=== PATIENT | female | born 1950 | race Caucasian/White ===

== ENCOUNTER 2017-10-07 11:48 | Inpatient (IN) | payer MEDICARE, OTHER ==
[~2017-10-07] VITALS: Ht 157.5 cm; Wt 108.9 kg
[2017-10-07 11:50] VITALS: BP 204/101
[2017-10-07] MEDS ORDERED: ZANTAC 150MG T150 MG PO (11:56)
[2017-10-07] MEDS ORDERED: JANUVIA100 MG PO (11:56)
[2017-10-07] MEDS ORDERED: NORVASC5 MG PO (11:56)
[2017-10-07] MEDS ORDERED: LEVOCETIRIZINE D5 MG PO (11:57)
[2017-10-07] MEDS ORDERED: PROTONIX40 M1 PO (11:57)
[2017-10-07] MEDS ORDERED: AVAPRO75 MG PO (11:58)
[2017-10-07 12:36] LABS: ABSOLUTE EOSINOPHILS 0.1 thou/uL (0.0-0.7); ABSOLUTE LYMPHOCYTES 1.9 thou/uL (0.8-5.3); ABSOLUTE MONOCYTES 0.4 thou/uL (0.0-1.2); ABSOLUTE NEUTROPHILS 8.7 thou/uL (1.6-8.1); BASOPHILS 0.4 %; EOSINOPHILS 1.3 %; HEMATOCRIT 41.7 % (37.0-47.0); HEMOGLOBIN 13.5 gm/dL (12.0-15.0); LYMPHOCYTES 16.8 %; MCH 26.9 pg (26.0-34.0); MCHC 32.5 g/dL (28.0-37.0); MCV 82.9 fL (80.0-100.0); MONOCYTES 3.4 %; MPV 8.8 fl. (7.2-11.1); NUCLEATED RBCS 0 /100WBC; PLATELET COUNT* 245 thou/uL (150-400); POLYS 78.1 %; RBC 5.03 mil/uL (4.20-5.00); WBC 11.2 thou/uL (4.0-11.0)
[2017-10-07 12:46] LABS: APTT 24.6 Seconds (25.0-31.3); PROTIME 9.8 Seconds (9.20-11.50)
[2017-10-07 12:50] LABS: ANION GAP 8 mmol/L (7-16); BUN 19 mg/dL (7-18); CALCIUM 8.1 mg/dL (8.5-10.1); CHLORIDE 106 mmol/L (98-107); CO2 26 mmol/L (21-32); CREATININE 0.9 mg/dL (0.6-1.3); GLUCOSE 200 mg/dL (70-99); POTASSIUM 3.5 mmol/L (3.5-5.1); SODIUM 140 mmol/L (136-145)
[2017-10-07 12:56] LABS: ALBUMIN 3.5 g/dL (3.4-5.0); ALKALINE PHOSPHATASE 97 U/L (46-116); LIPASE 87 U/L (73-393); SGOT 14 U/L (15-37); SGPT 28 U/L (30-65); TOTAL BILIRUBIN 0.3 mg/dL (<0.1-1.0); TROPONIN-I LEVEL <0.06 ng/mL (<0.06)
[2017-10-07 13:03] LABS: URINE BILIRUBIN NEGATIVE (Negative); URINE BLOOD TRACE (Negative); URINE CLARITY CLEAR; URINE COLOR YELLOW; URINE GLUCOSE-RANDOM 1+ (Negative); URINE KETONES TRACE (Negative); URINE LEUKOCYTES NEGATIVE (Negative); URINE NITRITE NEGATIVE (Negative); URINE PROTEIN NEGATIVE (Negative); URINE SPECIFIC GRAVITY 1.015 (1.005-1.030); URINE UROBILINOGEN 0.2 E.U./dl (0.2-1.0)
[2017-10-07 14:02] LABS: AMP/METHAMP Negative (Negative); BARBITURATES Negative (Negative); BENZODIAZEPINES Negative (Negative); COCAINE Negative (Negative); METHADONE Negative (Negative); OPIATES Negative (Negative); PCP Negative (Negative); THC Negative (Negative)
[2017-10-07 14:59] VITALS: BP 166/90
[2017-10-07 16:00] VITALS: BP 177/88
[2017-10-07 21:05] VITALS: BP 181/91
[2017-10-08 07:17] LABS: ABSOLUTE EOSINOPHILS 0.1 thou/uL (0.0-0.7); ABSOLUTE LYMPHOCYTES 2.3 thou/uL (0.8-5.3); ABSOLUTE MONOCYTES 0.5 thou/uL (0.0-1.2); ABSOLUTE NEUTROPHILS 8.1 thou/uL (1.6-8.1); BASOPHILS 0.2 %; EOSINOPHILS 0.5 %; HEMATOCRIT 39.3 % (37.0-47.0); HEMOGLOBIN 12.7 gm/dL (12.0-15.0); LYMPHOCYTES 21.2 %; MCH 26.9 pg (26.0-34.0); MCHC 32.3 g/dL (28.0-37.0); MCV 83.1 fL (80.0-100.0); MONOCYTES 4.9 %; MPV 8.7 fl. (7.2-11.1); NUCLEATED RBCS 0 /100WBC; PLATELET COUNT* 253 thou/uL (150-400); POLYS 73.2 %; RBC 4.73 mil/uL (4.20-5.00); RDW-CV 13.8 % (10.5-14.5); WBC 11.1 thou/uL (4.0-11.0)
[2017-10-08 07:24] LABS: CALCIUM 8.3 mg/dL (8.5-10.1); CREATININE 0.9 mg/dL (0.6-1.3); POTASSIUM 3.4 mmol/L (3.5-5.1)
[2017-10-08 08:45] VITALS: BP 146/75
[2017-10-08 16:00] VITALS: BP 129/68
[2017-10-09] VITALS: BP 140/68
[2017-10-09 07:55] VITALS: BP 138/67
--- NOTE | 2017-10-09 13:06 | EKG ---
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 DOUGLAS : 1950 Requested By: Tonja Martin Order Number: [id number] MD: Christian Ramirez Measurements Intervals [place] Rate: 107 P: 16 NC: 183 QRS: 36 QRSD: 111 T: -14 QT: 360 QTc: 481 Interpretive Statements Sinus tachycardia Borderline T abnormalities, diffuse leads No previous ECG available for comparison Electronically Signed On 10-09-2017 13:06:28 NURSE COORDINATOR by Christian Ramirez [email or web address] <ELECTRONICALLY SIGNED> By: Christian Ramirez MD, [facility] 10/09/17 1306 1313 12 Christian Ramirez MD, FACC /EPI
[2017-10-09 16:00] VITALS: BP 133/78
[2017-10-09 19:35] VITALS: BP 123/72
[2017-10-10 08:30] VITALS: BP 153/79
--- NOTE | 2017-10-10 09:11 | CON ---
[address] [address] CONSULTATION Name: ASAD GARZON Room: [address] IN ..#: [id number] Admission: 10/07/17 Attend Phys: Petr Ponce MD Discharge: Date of : 48 Report #: [id number] THIS REPORT FOR: //name// CC: Petr Stanford DATE OF SERVICE: 10/08/2017 HISTORY OF PRESENT ILLNESS: This is a 67-year-old female patient who was evaluated by me for any neurological etiology for the patient's dizziness. This started spontaneously yesterday. She was doing the dishes, then noticed that she had severe onset of dizziness. Movement of the head makes it worse. She is about 20% better since yesterday. It is also associated with some difficulty with ambulation. Initially, she was given meclizine, which did not help. Subsequently, she was given Valium, which did make it better. She has never had this kind of episode before. REVIEW OF SYSTEMS: Indicate that she is otherwise healthy. She had hysterectomy in the past. She has a history of diabetes and hypertension, but they are reasonably well controlled. She is not complaining of any new eye, cardiac, respiratory, GI, , musculoskeletal, constitutional, dermatological, hematological, psychiatric, throat, allergic symptom associated with present symptomatology. PAST MEDICAL HISTORY: Negative for this kind of dizziness. FAMILY HISTORY: Negative for any neurological problems. SOCIAL HISTORY: She does not drink any alcohol or smoke. PHYSICAL EXAMINATION: The patient's examinations indicate that this patient is alert and responsive. Her speech, concentration, fund of knowledge and memory is at her baseline. Cranial nerve examination 2-12 is unremarkable. There is no nystagmus. She has a reasonably strength, sensation, reflexes and tone in all 4 extremities. There is no meningeal sign. There is no carotid bruit. I could not look at the fundus. She has no thyroid mass. Her heart examination shows normal heart sounds and no murmur. There is no respiratory difficulty or rhonchi. Blood pressure is 146/75, respirations 16, pulse 67, and temperature is 97.6. LABORATORY DATA: Her white count is somewhat high at 11.1. Her MRI and MARs were reviewed and that was within normal limits. IMPRESSION: It is unlikely that there is any neurological etiology for the patient's dizziness. It is most likely ENT pathology with other systemic etiologies need to be excluded. A normal MRI [place] [address] CONSULTATION Name: ASAD GARZON Room: [address]#: [id number] Admission: 10/07/17 Attend Phys: Petr Ponce MD Discharge: Date of : 48 Report #: [id number] unlikely to be neurological. RECOMMENDATIONS: 1. I will suggest an ENT consult. 2. I will suggest a monitoring of her white count and if it does not come down, then we may have to do some more workup for that. 3. We will start physical and occupational therapy. 4. She will need some exercises for inner ears, but that need to be decided by the physician. If more symptoms , then we can do some further checking neurologically in that regard. Thank you very much for allowing me to share in the management of this patient and if you have any question, please feel free to contact me. <ELECTRONICALLY SIGNED> By: Jimy Mcdaniel MD 10/10/17 0911 1132 [id number] Mcdaniel MD /nt
[2017-10-10 15:35] VITALS: BP 152/81
[2017-10-10 19:25] VITALS: BP 167/79
[2017-10-11 08:15] VITALS: BP 142/78
[2017-10-11 15:48] VITALS: BP 144/80
[2017-10-11 20:30] VITALS: BP 135/57
[2017-10-12 08:40] VITALS: BP 123/69
[2017-10-12] MEDS ORDERED: ANTIVERT25 MG PO (16:54)
[2017-10-12] MEDS ORDERED: VITAMIN B-1100 M1 PO (16:55)
[2017-10-12] MEDS ORDERED: VALIUM5 MG PO (16:57)
[2017-10-12 16:58] VITALS: BP 123/69
[2017-10-12] MEDS ORDERED: ONDANSETRON HCL4 M2 PO (18:06)
[2017-10-12 18:30] VITALS: BP 123/69
== END 2017-10-12 18:30 | disposition home or self-care (01) | DRG 683 ==
LOC: M.ERS 11:48 → M.3W 14:09 → M.TBA-ER 14:09 → M.3W 15:10
PROVIDERS: Nurse Practitioner Family; ADMIT Internal Medicine
DX: I12.9 Hypertensive chronic kidney disease with stage 1 through stage 4 chronic kidney disease, or unspecified chronic kidney disease (principal); Z68.41 Body mass index [BMI] 40.0-44.9, adult; M48.02 Spinal stenosis, cervical region; E66.01 Morbid (severe) obesity due to excess calories; H81.10 Benign paroxysmal vertigo, unspecified ear; N18.3 Chronic kidney disease, stage 3 (moderate); I16.0 Hypertensive urgency; Z85.42 Personal history of malignant neoplasm of other parts of uterus; K21.9 Gastro-esophageal reflux disease without esophagitis; H55.00 Unspecified nystagmus; E11.22 Type 2 diabetes mellitus with diabetic chronic kidney disease; Z79.899 Other long term (current) drug therapy; Z88.2 Allergy status to sulfonamides; Z90.710 Acquired absence of both cervix and uterus